=== PATIENT | male | born 1980 | race Caucasian/White ===

== ENCOUNTER 2017-06-22 18:39 | Inpatient (IN) | payer MEDICAID ==
[2017-06-22 19:35] LABS: % LYMPHOCYTES 22.3 % (20.0-50.0); % MONOCYTES 2.7 % (2.0-10.0); EOSINOPHILE ABSOLUTE 0.5 Th/cmm (0.1-0.4); HEMATOCRIT 44.6 % (41.0-60); HEMOGLOBIN 15.3 gm/dL (12-16); LYMPHOCYTE ABSOLUTE 2.5 Th/cmm (1.5-3.0); MEAN CELL VOLUME 95.5 fl (80-99); MEAN CORPUSCULAR HEMOGLOBIN 32.7 pg (26.0-30.0); MEAN CORPUSCULAR HGB CONC 34.2 pg (28.0-36.0); MEAN PLATELET VOLUME 8.6 fl; MONOCYTE ABSOLUTE 0.3 Th/cmm (0.3-1.0); PLATELET COUNT 201 Th/cmm (150-400); RED BLOOD COUNT 4.67 Mil/cmm (4.30-5.70); RED CELL DISTRIBUTION WIDTH 12.5 % (11.5-20.0); WHITE BLOOD COUNT 11.3 Th/cmm (4.8-10.8)
[2017-06-22 19:54] LABS: ALB/GLOB RATIO 1.5 (1.0-1.8); ALBUMIN 4.3 gm/dL (4.2-5.5); ALKALINE PHOSPHATASE 71 U/L (34-104); ANION GAP 12.7 (7.0-16.0); BILIRUBIN,TOTAL 0.1 mg/dL (0.3-1.0); BUN - UREA NITROGEN 17 mg/dL (7-25); CALCIUM SERUM 9.2 mg/dL (8.6-10.3); CARBON DIOXIDE 22.8 mEq/L (21.0-31.0); CHLORIDE 105 mEq/L (98-107); GFR AFRICAN-AMERICAN > 60.0 ml/min (>90); GFR NON AFRICAN-AMERICAN > 60.0 ml/min; GLUCOSE 205 mg/dL (70-105); POTASSIUM SERUM 3.5 mEq/L (3.5-5.1); SGOT 30 U/L (13-39); SGPT/ALT 38 U/L (7-52); SODIUM SERUM 137 mEq/L (136-145); TOTAL PROTEIN,SERUM 7.2 gm/dL (6.0-8.3)
--- NOTE | 2017-06-22 19:55 | ED Physician Chart ---
ED Chief Complaint/HPI - Patient Information Date Seen:: 06/22/17 Time Seen:: 19:55 Chief Complaint:: Seizures History of Present Illness:: 37 yo male was brought by ambulance from a hotel to ER for evaluation of seizures. Per patient's girlfriend, patient had history of seizures treated with dilantin and carbamazepine. The patient still had frequent episodes of small seizures. Furthermore, patient did not take anti-seizure medications during past 4 days. He had used methamphetamine at some point. Today, he lost consciousness and developed seizures at a hotel. Subsequently, 911 was called and he was brought to ER. After the patient wake up, he could not recall the seizures and felt generalized weakness. He reported last use of alcohol a month ago. At ER, the patient had one episode of grand mal seizure. Allergies:: Allergies Allergy/AdvReac Type Severity Reaction Status Date / Time No Known Allergies Allergy Verified 06/22/17 18:55 Vitals:: Vital Signs - 8 hr 06/22/17 18:55 Temp 99.4 F HR 109 RR 16 BP 134/82 O2 Sat % 94 ED Review of Systems - Review of Systems General/Constitutional: No fever Skin: No skin lesions Head: No headache Eyes: No loss of vision ENT: No earache Neck: No neck pain Cardio Vascular: No chest pain Pulmonary: No SOB GI: No nausea, No vomiting Musculoskeletal: No bone or joint pain ED Past Medical History - Past Medical History Past Medical History: DM (pre-diabetes), Seizures Social History: Smoker, Alcohol, Illicit Drug Use (methamphetamine) Surgical History: None Family Medical History - Family Member Mother History Unknown: Yes ED Physical Exam - Physical Examination General/Constitutional: Awake, Alert Head: Atraumatic Eyes: PERRL Skin: No ecchymosis ENMT: Nasal exam nl Neck: No nuchal rigidity Respiratory: No Wheeze/Rhonchi/Rales Cardio Vascular: RRR, No murmur, gallop, rubs, NL S1 S2 GI: No tenderness/rebounding/guarding Extremities: normal strength in all extremities Other Neuro/Psych comments:: mild tremor of b/l hand when extended. ED Labs/Radiology/EKG Results - Lab Results Results: Laboratory Tests 06/22/17 19:25 WBC 11.3 H RBC 4.67 Hgb 15.3 Hct 44.6 MCV 95.5 MCH 32.7 H MCHC Differential 34.2 RDW 12.5 Plt Count 201 MPV 8.6 Neutrophils % 71.0 Lymphocytes % 22.3 Monocytes % 2.7 Eosinophils % 4.0 Basophils % 0.0 - Radiology Results Results: CT head without contrast: No intracranial hemorrhage, mass effect or edema ED Assessment - Assessment General Assessment: Breakthrough seizures Leukocytosis Methamphetamine abuse Assessment/Comments:: CBC, CMP, UA, urine drug screen Ativan 2mg IM x [address] head without contrast At 23:00, patient took home medication Dilantin 400mg and Tegratol 200mg brought by girlfriend Spoke with Dr. Palm who instructed to give Dilantin 1000mg IV before the patient transferred to med surg floor. ED Septic Shock - . Is Septic Shock (SBP<90, OR Lactate>4 mmol\L) present?: No - <6hrs of presentation: Vital Signs: Vital Signs - 8 hr 06/22/17 18:55 Temp 99.4 F HR 109 RR 16 BP 134/82 O2 Sat % 94 ED Reassessment (Disposition) - Reassessment Reassessment Condition:: Improved - Patient Disposition Discharge/Transfer:: Acute Care w/in this hosp Admitted to:: [facility] Admitting Medical Physician:: Jeremiah Estrada
[2017-06-22 20:23] LABS: URINE MICROSCOPIC INDICATED? YES; URINE SOURCE RANDOM
[2017-06-22 20:26] LABS: URINE BILIRUBIN NEGATIVE (NEGATIVE); URINE BLOOD TRACE (NEGATIVE); URINE GLUCOSE (UA) NEGATIVE (NEGATIVE); URINE KETONE NEGATIVE (NEGATIVE); URINE LEUKOCYTE ESTERASE NEGATIVE (NEGATIVE); URINE NITRATE NEGATIVE (NEGATIVE); URINE PH 5.5 (4.6 - 8.0); URINE PROTEIN 100 mg/dL (NEGATIVE); URINE UROBILINOGEN 0.2 E.U./dL (0.2 - 1.0)
[2017-06-22 20:32] LABS: URINE BACTERIA NONE SEEN /hpf (NONE SEEN); URINE CLARITY CLEAR (CLEAR); URINE COLOR YELLOW; URINE EPITHELIAL CELLS NONE SEEN /lpf (FEW); URINE WBC NONE SEEN /hpf (0-5)
[2017-06-22 20:51] LABS: AMPHETAMINE URINE POSITIVE (NEGATIVE); BARBITURATES URINE NEGATIVE (NEGATIVE); BENZODIAZEPINES QUAL URINE NEGATIVE (NEGATIVE); CANNABINOID THC NEGATIVE (NEGATIVE); COCAINE METABOLITE QUAL URINE NEGATIVE (NEGATIVE); METHADONE URINE NEGATIVE (NEGATIVE); METHAMPHETAMINES QUAL URINE POSITIVE (NEGATIVE); OPIATES (MORPHINE) QUAL. URINE NEGATIVE (NEGATIVE); PHENCYCLIDINE (PCP) URINE NEGATIVE (NEGATIVE); TRICYCLICS (TCA) QUAL. URINE NEGATIVE (NEGATIVE)
[2017-06-22] MEDS ORDERED: Sodium Chloride 0.9% 1,000 ML IV ONE (22:40)
[2017-06-22] MEDS ORDERED: cefTRIAXone 1 GM in Sodium Chloride 0.9% 50 ML IV ONE (22:41)
[2017-06-22 22:56] LABS: PHENYTOIN < 2.5 ug/ml (10.0-20.0)
[2017-06-23] MEDS ORDERED: Phenytoin 1,000 MG in Sodium Chloride 0.9% 100 ML IV ONE (01:04)
[2017-06-23] MEDS ORDERED: Phenytoin 50 mg/mL 5 mL Vial IV ONE (01:24)
[2017-06-23 03:23] VITALS: BP 115/71
--- NOTE | 2017-06-23 08:08 | Diagnostic Imaging Report ---
CT scan of the brain without contrast History: Seizure Total DLP equals 599 CTDI equals 33.9 Axial sections were obtained from the base of the skull to the vertex. There is a normal ventricular system size. No focal parenchymal lesions are seen. No evidence of any mass effect or shift of midline structures. No extra-axial masses or abnormal fluid collections. Impression: Negative examination.
--- NOTE | 2017-06-23 11:47 | History & Physical ---
ADMIT DATE: PATIENT IDENTIFICATION: A 37-year-old male. CHIEF COMPLAINT: "I don't know what happened." HISTORY OF PRESENT ILLNESS: A 37-year-old [place] male with longstanding history of seizure disorder, has been followed by cooperer, Dr. Carlos Abdullahi in [facility], stopped taking his seizure medication approximately 2 weeks ago. According to him, he was living with his girlfriend and his girlfriend kicked him out and he was staying in a hotel. In a hotel, he had tonic-clonic seizure and the patient was rushed into Emergency Room after someone called 911. When the patient arrived in the Emergency Room, the patient was extensively worked up and noted to have a Dilantin and Tegretol level of less than 2.5. The patient's urine drug screen was positive for crystal meth. The patient did have a CT scan, which was unremarkable. I did talk to Emergency Room MD about the patient is to be loaded with Dilantin and the patient can be discharged, but the patient ended up staying in the hospital since the patient was still not responding after got some IV Ativan. This morning, the patient is alert, awake, oriented and provided the excellent history. PAST MEDICAL HISTORY: Remarkable for seizure disorder. MEDICATIONS AT HOME: Dilantin and Tegretol. ALLERGIES: None. 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 The patient is currently homeless. He smokes occasionally cigarettes, drinks alcohol occasionally and use illicit drugs. FAMILY MEDICAL HISTORY: Remarkable for diabetes mellitus. REVIEW OF SYSTEMS: The patient currently denies any headache, blurred vision, double vision, dysphagia, odynophagia, runny nose, stuffy nose, fever, chills, cough, chest pain, shortness of breath, palpitation, dizziness, nausea, vomiting, diarrhea, dysuria, hematuria, hematochezia, or melena. No history of any seizure or syncopal episode. No weight loss or weight gain. PHYSICAL EXAMINATION: GENERAL: The patient is alert, awake, oriented, lying in the bed without any acute distress. VITAL SIGNS: Temperature 98.6, pulse 64, respiratory rate 18, and blood pressure 115/71. HEENT: Normocephalic and atraumatic. Extraocular muscles are intact. Pupil are round and reactive to light. Tongue was pink and coated. No oral lesion, no exudate. No sinus tenderness. NECK: Supple, no JVD, no hepatojugular reflex. No lymphadenopathy, thyromegaly, or carotid bruit. HEART: Both heart sounds are regular. No S3, no S4, no murmur. CHEST: Lung equal in expansion. No wheezing, no crackles. ABDOMEN: Soft. No guarding, no rigidity. Liver and spleen palpable. No palpable mass. EXTREMITIES: No edema, no cyanosis or clubbing. ____ +2. No calf tenderness noted. NEUROLOGIC: Alert, awake, and oriented to time, place, person. 2-12 cranial nerves intact. Power in upper and lower extremities 5+. Sensory to touch intact. Babinski's in both toes are going down. No cerebellar sign. AVAILABLE DIAGNOSTIC DATA: Urine drug screen is positive for amphetamine and methamphetamine screen. Dilantin level was 0.25 and Tegretol too less than 2. After loaded with Dilantin, the patient's Dilantin level is 13.6. Urinalysis remarkable, 100 protein, 2-5 rbc's. Chemistry panels are within normal limit except random blood sugars 205. ____. Liver functions are normal. White count of 11.3, hemoglobin 15.3, and platelet count 201. CT scan of the head was unremarkable. CLINICAL IMPRESSION: 1. Breakthrough seizure secondary to noncompliance of his medications. 2. Methamphetamine use. 3. Homelessness. PLAN: The patient remained hemodynamically as well as neurologically intact. Dilantin level is therapeutic. The patient can be discharged home with currently prescribed Dilantin and Tegretol as the patient was receiving. The patient is currently homeless. Social service consultation has been requested and the patient will be placed on the community safely. The patient has fully understood about the treatment plan. I do not think at this time the patient needs to have any psychotic evaluation or the patient has any suicidal or homicidal ideation. The patient is well aware of his substance abuse history. The patient has been strongly encouraged to see his cooperer and have followup with him, so the patient can be followed for his seizure. JOB# [id number]
[2017-06-24] MEDS ORDERED: Influenza Vaccine 0.5 mL Syr IM ONE (09:00)
--- NOTE | 2017-06-24 09:03 | General Progress Note ---
Subjective - Review of Systems Subjective: Patient is seen and examined. Patient says, I am suciidal. Discharge is on hold. Psych consult is pending. Objective - Results Result Diagrams: 06/22/17 19:25 06/22/17 19:25 Recent Labs: Laboratory Last Values WBC 11.3 Th/cmm (4.8-10.8) H 06/22/17 19:25 RBC 4.67 Mil/cmm (4.30-5.70) 06/22/17 19:25 Hgb 15.3 gm/dL (12-16) 06/22/17 19:25 Hct 44.6 % (41.0-60) 06/22/17 19:25 MCV 95.5 fl (80-99) 06/22/17 19:25 MCH 32.7 pg (26.0-30.0) H 06/22/17 19:25 MCHC Differential 34.2 pg (28.0-36.0) 06/22/17 19:25 RDW 12.5 % (11.5-20.0) 06/22/17 19:25 Plt Count 201 Th/cmm (150-400) 06/22/17 19:25 MPV 8.6 fl 06/22/17 19:25 Neutrophils % 71.0 % (40.0-80.0) 06/22/17 19:25 Lymphocytes % 22.3 % (20.0-50.0) 06/22/17 19:25 Monocytes % 2.7 % (2.0-10.0) 06/22/17 19:25 Eosinophils % 4.0 % (0.0-5.0) 06/22/17 19:25 Basophils % 0.0 % (0.0-2.0) 06/22/17 19:25 Sodium 137 mEq/L (136-145) 06/22/17 19:25 Potassium 3.5 mEq/L (3.5-5.1) 06/22/17 19:25 Chloride 105 mEq/L (98-107) 06/22/17 19:25 Carbon Dioxide 22.8 mEq/L (21.0-31.0) 06/22/17 19:25 Anion Gap 12.7 (7.0-16.0) 06/22/17 19:25 BUN 17 mg/dL (7-25) 06/22/17 19:25 Creatinine 1.0 mg/dL (0.7-1.3) 06/22/17 19:25 Est GFR ( Amer) > 60.0 ml/min (>90) 06/22/17 19:25 Est GFR (Non-Af Amer) > 60.0 ml/min 06/22/17 19:25 BUN/Creatinine Ratio 17.0 06/22/17 19:25 Glucose 205 mg/dL (70-105) H 06/22/17 19:25 Hemoglobin A1c % 6.0 % (4.0-6.0) 06/22/17 19:25 Calcium 9.2 mg/dL (8.6-10.3) 06/22/17 19:25 Total Bilirubin 0.1 mg/dL (0.3-1.0) L 06/22/17 19:25 AST 30 U/L (13-39) 06/22/17 19:25 ALT 38 U/L (7-52) 06/22/17 19:25 Alkaline Phosphatase 71 U/L (34-104) 06/22/17 19:25 Total Protein 7.2 gm/dL (6.0-8.3) 06/22/17 19:25 Albumin 4.3 gm/dL (4.2-5.5) 06/22/17 19:25 Globulin 2.9 gm/dL 06/22/17 19:25 Albumin/Globulin Ratio 1.5 (1.0-1.8) 06/22/17 19:25 Urine Source RANDOM 06/22/17 19:00 Urine Color YELLOW 06/22/17 19:00 Urine Clarity CLEAR (CLEAR) 06/22/17 19:00 Urine pH 5.5 (4.6 - 8.0) 06/22/17 19:00 Ur Specific [place] >= 1.030 (1.005-1.030) 06/22/17 19:00 Urine Protein 100 mg/dL (NEGATIVE) H 06/22/17 19:00 Urine Glucose (UA) NEGATIVE mg/dL (NEGATIVE) 06/22/17 19:00 Urine Ketones NEGATIVE mg/dL (NEGATIVE) 06/22/17 19:00 Urine Blood TRACE (NEGATIVE) 06/22/17 19:00 Urine Nitrate NEGATIVE (NEGATIVE) 06/22/17 19:00 Urine Bilirubin NEGATIVE (NEGATIVE) 06/22/17 19:00 Urine Urobilinogen 0.2 E.U./dL (0.2 - 1.0) 06/22/17 19:00 Ur Leukocyte Esterase NEGATIVE (NEGATIVE) 06/22/17 19:00 Urine RBC 2-5 /hpf (0-5) H 06/22/17 19:00 Urine WBC NONE SEEN /hpf (0-5) 06/22/17 19:00 Ur Epithelial Cells NONE SEEN /lpf (FEW) 06/22/17 19:00 Urine Bacteria NONE SEEN /hpf (NONE SEEN) 06/22/17 19:00 Urine Opiates Screen NEGATIVE (NEGATIVE) 06/22/17 19:00 Urine Methadone Screen NEGATIVE (NEGATIVE) 06/22/17 19:00 Ur Barbiturates Screen NEGATIVE (NEGATIVE) 06/22/17 19:00 Phenytoin 13.6 ug/ml (10.0-20.0) 06/23/17 05:09 Carbamazepine < 2.0 ug/ml (4.0-12.0) L 06/22/17 19:25 Ur Tricyclics Screen NEGATIVE (NEGATIVE) 06/22/17 19:00 Ur Phencyclidine Scrn NEGATIVE (NEGATIVE) 06/22/17 19:00 Amphetamines Screen POSITIVE (NEGATIVE) H 06/22/17 19:00 U Methamphetamines Scrn POSITIVE (NEGATIVE) H 06/22/17 19:00 U Benzodiazepines Scrn NEGATIVE (NEGATIVE) 06/22/17 19:00 U Cocaine Metab Screen NEGATIVE (NEGATIVE) 06/22/17 19:00 U Cannabinoids Screen NEGATIVE (NEGATIVE) 06/22/17 19:00 Ethyl Alcohol < 10 mg/dL (0-10) 06/22/17 19:25 - Physical Exam Vitals and I&O: Vital Signs Temp 97.8 F 06/24/17 07:40 Pulse 77 06/24/17 07:40 Resp 17 06/24/17 07:40 BP 105/70 06/24/17 07:40 Pulse Ox 95 06/24/17 07:40 Intake & Output 06/23/17 06/24/17 06/24/17 18:59 06:59 18:59 Intake Total 1000 Balance 1000 Weight (lbs) 88.451 kg 88.451 kg Intake: Oral 1000 Other: # Voids 4 2 # Bowel Movements 0 Active Medications: Current Medications Carbamazepine (Tegretol) 200 mg PO BID ELLI PRN Reason: Protocol Stop: 08/22/17 08:59 Last Admin: 06/23/17 16:27 Dose: 200 mg Influenza Virus Vaccine (Fluarix) 0.5 ml IM .ONCE ONE Stop: 06/24/17 09:01 Lorazepam (Ativan) 1 mg IVP Q4HR PRN; Protocol PRN Reason: Seizures Stop: 08/22/17 03:33 General: Alert, Oriented x3, No acute distress HEENT: Atraumatic, PERRLA, EOMI, Mucous membr. moist/pink Neck: Supple, +2 carotid pulse wo bruit Cardiovascular: Regular rate, Normal S1, Normal S2 Lungs: Clear to auscultation Abdomen: Bowel sounds, Soft Neurological: Normal gait, Strength at 5/5 X4 ext, Normal tone, Cranial nerves 3 -12 NL, Reflexes 2+ Psych/Mental Status: Mental status NL Assessment/Plan - Assessment Assessment: Seizure Psych disorder and sucidal ideation. - Plan Plan: Seizure meds and precautions. Psych consult is pending. Stable for DC to psych facility. Discussed with staff. Nutritional Asmnt/Malnutr-PDOC - Dietary Evaluation Malnutrition Findings (Please click <Entered> for more info): Nutritional Asmnt/Malnutrition Start: 06/23/17 18: 28 Text: Status: Complete Freq: Document 06/23/17 18:28 LCHEN (Rec: 06/23/17 18:34 HENG [email or web address]) Nutritional Asmnt/Malnutrition Patient General Information Nutritional Screening High Risk Consult Diagnosis break through seizures Pertinent Medical Hx/Surgical Hx DM, seizure Subjective Information Consult received for high BS. Pt seen lying in bed at time of visit, awake alert. Pt reported good appetite, ate well today. Per records, PO intake 100% x 3 today Current Diet Order/ Nutrition Support regular Pertinent Medications reviewed Pertinent Labs 2/6 glucose 205, A1c 6.0 Nutritional Hx/Data Height 1.63 m Height (Calculated Centimeters) 162.6 Current Weight (lbs) 89.811 kg Weight (Calculated Kilograms) 89.8 Weight (Calculated Grams) 03898.3 [place] Body Weight 130 % [place] Body Weight 152 Body Mass Index (BMI) 34.0 Weight Status Obese GI Symptoms GI Symptoms None Last BM 0 Difficult in: None Usual diet at home pt stated he was told to follow diabetic diet but he did not. Skin Integrity/Comment: intact Current %PO Good (75-100%) Estimated Nutritional Goals BEE in Kcals: Adj wt of IBW Calories/Kcals/Kg 25-30 Kcals Calculated 0600-0572 Protein: Adj wt of IBW Protein g/k-1.2 Protein Calculated 66-79 Fluid: ml 1650-1980ml (1ml/kcal) Nutritional Problem 1. Problem Problem altered nutrition related lab values Etiology hx of DM, excessive carborhydrate intake Signs/Symptoms: glucose 205 Malnutrition Alert Protein-Calorie Malnutrition N/A Is there a minimum of two criteria No selected? Query Text:Check all the applicable criteria. A minimum of two criteria are recommended for diagnosis of either severe or non-severe malnutrition. Intervention/Recommendation Comments 1. Recommend CCHO-60gm diet for optimal glycemic control. RN made aware. 2. Diabetes education provided . Pt showed interest. handout left on table while pt sleeping at the time. 3. Monitor PO intake, wt, labs and skin integrity 4. F/U as moderate risk in 3-5 days, 06/26-06/28 Expected Outcomes/Goals Expected Outcomes/Goals 1. PO intake to meet at least 75% of nutritional needs. 2. Wt stability, skin to remain intact, labs to approach WNL.
--- NOTE | 2017-06-24 09:22 | Consultation ---
DATE OF CONSULTATION: 06/24/2017 AGE: 37 SEX: Male. PHYSICIAN: Dr. Estrada. BURIAL AGENT: Dr. Guardado. TYPE OF THE REPORT: Psychiatric consult. REASON FOR THE CONSULT: Depression and meth use. HISTORY OF PRESENT ILLNESS: The patient is a 37-year-old male who was admitted to the hospital because the patient has history of seizure disorder and he is still taking his seizure medications for 2 weeks for no apparent reason. The patient was living with his girlfriend who kicked him out and since then he has been living in a motel and his medications in his girlfriend's place and he could not go back to take it. The patient said that he has been depressed since his girlfriend kicked him out. The patient also has been feeling hopeless. The patient states he at times feels suicidal with no plans. The patient denies any history of suicidal ideations or attempt and denies any history of psychiatric treatment. The patient has been using meth and last time he used was 3 days prior to his admission. He denies any other street drug use and he denies drinking. PAST PSYCHIATRIC HISTORY: The patient denies except that the patient went to rehab programs, but he continued to use afterwards. PAST MEDICAL HISTORY: Seizure disorder. SOCIAL HISTORY: The patient lives in a motel. 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 He denies any abuse issues. The patient is single, never and has no children. ALLERGIES: No known allergies. MENTAL STATUS EXAM: The patient appears his stated age. Calm. Cooperative. Depressed mood. Fair eye contact. Normal tone and rate of speech. Thought processes mainly goal directed. The patient denies auditory or visual hallucinations or delusions. The patient admits suicidal ideations and is every now and then but he denies any homicidal ideations. The patient is alert and oriented to time, place, person, and situation. Intact immediate, recent and remote memories. Fair insight and fair judgment. He seems to be of average intelligence based on his verbal ability. ASSESSMENT: PRIMARY DIAGNOSES: Major depression, moderate to severe, single episode, without psychotic features. SECONDARY DIAGNOSIS: Methamphetamine use disorder. TREATMENT PLAN: We will monitor the patient's behavior and reevaluate the patient. Currently, the patient also is saying that he is having thoughts of suicide. According to my judgment as well as nursing staff, it seems that he needs placement. Also, the patient will need rehabilitation. Also, outpatient treatment after his discharge when medically stable. We will reevaluate the patient. Thanks to Dr. Estrada and we will follow up with you. JOB# [id number]
--- NOTE | 2017-06-25 09:21 | General Progress Note ---
Subjective - Review of Systems Subjective: Patient is seen and examined. Psych input noted. Discussed with RN re; dc plan. Objective - Results Result Diagrams: 06/22/17 19:25 06/22/17 19:25 Recent Labs: Laboratory Last Values WBC 11.3 Th/cmm (4.8-10.8) H 06/22/17 19:25 RBC 4.67 Mil/cmm (4.30-5.70) 06/22/17 19:25 Hgb 15.3 gm/dL (12-16) 06/22/17 19:25 Hct 44.6 % (41.0-60) 06/22/17 19:25 MCV 95.5 fl (80-99) 06/22/17 19:25 MCH 32.7 pg (26.0-30.0) H 06/22/17 19:25 MCHC Differential 34.2 pg (28.0-36.0) 06/22/17 19:25 RDW 12.5 % (11.5-20.0) 06/22/17 19:25 Plt Count 201 Th/cmm (150-400) 06/22/17 19:25 MPV 8.6 fl 06/22/17 19:25 Neutrophils % 71.0 % (40.0-80.0) 06/22/17 19:25 Lymphocytes % 22.3 % (20.0-50.0) 06/22/17 19:25 Monocytes % 2.7 % (2.0-10.0) 06/22/17 19:25 Eosinophils % 4.0 % (0.0-5.0) 06/22/17 19:25 Basophils % 0.0 % (0.0-2.0) 06/22/17 19:25 Sodium 137 mEq/L (136-145) 06/22/17 19:25 Potassium 3.5 mEq/L (3.5-5.1) 06/22/17 19:25 Chloride 105 mEq/L (98-107) 06/22/17 19:25 Carbon Dioxide 22.8 mEq/L (21.0-31.0) 06/22/17 19:25 Anion Gap 12.7 (7.0-16.0) 06/22/17 19:25 BUN 17 mg/dL (7-25) 06/22/17 19:25 Creatinine 1.0 mg/dL (0.7-1.3) 06/22/17 19:25 Est GFR ( Amer) > 60.0 ml/min (>90) 06/22/17 19:25 Est GFR (Non-Af Amer) > 60.0 ml/min 06/22/17 19:25 BUN/Creatinine Ratio 17.0 06/22/17 19:25 Glucose 205 mg/dL (70-105) H 06/22/17 19:25 Hemoglobin A1c % 6.0 % (4.0-6.0) 06/22/17 19:25 Calcium 9.2 mg/dL (8.6-10.3) 06/22/17 19:25 Total Bilirubin 0.1 mg/dL (0.3-1.0) L 06/22/17 19:25 AST 30 U/L (13-39) 06/22/17 19:25 ALT 38 U/L (7-52) 06/22/17 19:25 Alkaline Phosphatase 71 U/L (34-104) 06/22/17 19:25 Total Protein 7.2 gm/dL (6.0-8.3) 06/22/17 19:25 Albumin 4.3 gm/dL (4.2-5.5) 06/22/17 19:25 Globulin 2.9 gm/dL 06/22/17 19:25 Albumin/Globulin Ratio 1.5 (1.0-1.8) 06/22/17 19:25 Urine Source RANDOM 06/22/17 19:00 Urine Color YELLOW 06/22/17 19:00 Urine Clarity CLEAR (CLEAR) 06/22/17 19:00 Urine pH 5.5 (4.6 - 8.0) 06/22/17 19:00 Ur Specific [place] >= 1.030 (1.005-1.030) 06/22/17 19:00 Urine Protein 100 mg/dL (NEGATIVE) H 06/22/17 19:00 Urine Glucose (UA) NEGATIVE mg/dL (NEGATIVE) 06/22/17 19:00 Urine Ketones NEGATIVE mg/dL (NEGATIVE) 06/22/17 19:00 Urine Blood TRACE (NEGATIVE) 06/22/17 19:00 Urine Nitrate NEGATIVE (NEGATIVE) 06/22/17 19:00 Urine Bilirubin NEGATIVE (NEGATIVE) 06/22/17 19:00 Urine Urobilinogen 0.2 E.U./dL (0.2 - 1.0) 06/22/17 19:00 Ur Leukocyte Esterase NEGATIVE (NEGATIVE) 06/22/17 19:00 Urine RBC 2-5 /hpf (0-5) H 06/22/17 19:00 Urine WBC NONE SEEN /hpf (0-5) 06/22/17 19:00 Ur Epithelial Cells NONE SEEN /lpf (FEW) 06/22/17 19:00 Urine Bacteria NONE SEEN /hpf (NONE SEEN) 06/22/17 19:00 Urine Opiates Screen NEGATIVE (NEGATIVE) 06/22/17 19:00 Urine Methadone Screen NEGATIVE (NEGATIVE) 06/22/17 19:00 Ur Barbiturates Screen NEGATIVE (NEGATIVE) 06/22/17 19:00 Phenytoin 13.6 ug/ml (10.0-20.0) 06/23/17 05:09 Carbamazepine < 2.0 ug/ml (4.0-12.0) L 06/22/17 19:25 Ur Tricyclics Screen NEGATIVE (NEGATIVE) 06/22/17 19:00 Ur Phencyclidine Scrn NEGATIVE (NEGATIVE) 06/22/17 19:00 Amphetamines Screen POSITIVE (NEGATIVE) H 06/22/17 19:00 U Methamphetamines Scrn POSITIVE (NEGATIVE) H 06/22/17 19:00 U Benzodiazepines Scrn NEGATIVE (NEGATIVE) 06/22/17 19:00 U Cocaine Metab Screen NEGATIVE (NEGATIVE) 06/22/17 19:00 U Cannabinoids Screen NEGATIVE (NEGATIVE) 06/22/17 19:00 Ethyl Alcohol < 10 mg/dL (0-10) 06/22/17 19:25 - Physical Exam Vitals and I&O: Vital Signs Temp 97.9 F 06/25/17 07:41 Pulse 72 06/25/17 07:41 Resp 18 06/25/17 07:41 BP 116/72 06/25/17 07:41 Pulse Ox 99 06/25/17 07:41 Intake & Output 06/24/17 06/25/17 06/25/17 18:59 06:59 18:59 Intake Total 500 Balance 500 Weight (lbs) 88.451 kg 88.451 kg Intake: Oral 500 Other: # Voids 2 # Bowel Movements 0 Stool Characteristics Soft Active Medications: Current Medications Carbamazepine (Tegretol) 200 mg PO BID ELLI PRN Reason: Protocol Stop: 08/22/17 08:59 Last Admin: 06/25/17 09:03 Dose: 200 mg Lorazepam (Ativan) 1 mg IVP Q4HR PRN; Protocol PRN Reason: Seizures Stop: 08/22/17 03:33 Phenytoin (Dilantin) 200 mg PO BID ELLI Stop: 08/23/17 16:59 Last Admin: 06/25/17 09:03 Dose: 200 mg General: Alert, Oriented x3, No acute distress HEENT: Atraumatic, PERRLA, EOMI, Mucous membr. moist/pink Neck: Supple, +2 carotid pulse wo bruit Cardiovascular: Regular rate, Normal S1, Normal S2 Lungs: Clear to auscultation Abdomen: Bowel sounds, Soft Neurological: Normal gait, Strength at 5/5 X4 ext, Normal tone, Cranial nerves 3 -12 NL, Reflexes 2+ Psych/Mental Status: Mental status NL Assessment/Plan - Assessment Assessment: Seizure Psych disorder evaluated by psych as per psych needs placement and out patient rehab - Plan Plan: Patient is stable for discharge. Discussed with communications planner RE: dc to residential. Prescription is written. Out patient follow up with PCP and Psych discussed with patient. Nutritional Asmnt/Malnutr-PDOC - Dietary Evaluation Malnutrition Findings (Please click <Entered> for more info): Nutritional Asmnt/Malnutrition Start: 06/23/17 18: 28 Text: Status: Complete Freq: Document 06/23/17 18:28 LCYARELIS (Rec: 06/23/17 18:34 [email or web address]) Nutritional Asmnt/Malnutrition Patient General Information Nutritional Screening High Risk Consult Diagnosis break through seizures Pertinent Medical Hx/Surgical Hx DM, seizure Subjective Information Consult received for high BS. Pt seen lying in bed at time of visit, awake alert. Pt reported good appetite, ate well today. Per records, PO intake 100% x 3 today Current Diet Order/ Nutrition Support regular Pertinent Medications reviewed Pertinent Labs 2/6 glucose 205, A1c 6.0 Nutritional Hx/Data Height 1.63 m Height (Calculated Centimeters) 162.6 Current Weight (lbs) 89.811 kg Weight (Calculated Kilograms) 89.8 Weight (Calculated Grams) 05890.3 [place] Body Weight 130 % [place] Body Weight 152 Body Mass Index (BMI) 34.0 Weight Status Obese GI Symptoms GI Symptoms None Last BM 0 Difficult in: None Usual diet at home pt stated he was told to follow diabetic diet but he did not. Skin Integrity/Comment: intact Current %PO Good (75-100%) Estimated Nutritional Goals BEE in Kcals: Adj wt of IBW Calories/Kcals/Kg 25-30 Kcals Calculated 2471-9138 Protein: Adj wt of IBW Protein g/k-1.2 Protein Calculated 66-79 Fluid: ml 1650-1980ml (1ml/kcal) Nutritional Problem 1. Problem Problem altered nutrition related lab values Etiology hx of DM, excessive carborhydrate intake Signs/Symptoms: glucose 205 Malnutrition Alert Protein-Calorie Malnutrition N/A Is there a minimum of two criteria No selected? Query Text:Check all the applicable criteria. A minimum of two criteria are recommended for diagnosis of either severe or non-severe malnutrition. Intervention/Recommendation Comments 1. Recommend CCHO-60gm diet for optimal glycemic control. RN made aware. 2. Diabetes education provided . Pt showed interest. handout left on table while pt sleeping at the time. 3. Monitor PO intake, wt, labs and skin integrity 4. F/U as moderate risk in 3-5 days, 06/26-06/28 Expected Outcomes/Goals Expected Outcomes/Goals 1. PO intake to meet at least 75% of nutritional needs. 2. Wt stability, skin to remain intact, labs to approach WNL.
--- NOTE | 2017-06-25 21:32 | Progress Notes ---
DATE: 06/25/2017 PSYCHIATRIC PROGRESS NOTE SUBJECTIVE: Chart reviewed and the patient interviewed. Also discussed the patient's condition with the staff and reviewed records and labs. The patient's affect is brighter. The patient is still complaining of feeling depressed, but denies any intention to harm himself or others. The patient also did talk to his girlfriend and she is going to give him his belongings that she has in her place. Also, they have peaceful relationship at this time. The patient also denies any craving to use any methamphetamines. At the same time, we will continue to follow his behavior closely and will continue to follow up. The patient also agreed to go to a halfway with plan to go to see AA meetings and also to mental health clinic for followup. At this time, the patient is not suicidal or homicidal and can be discharged from the hospital when medically cleared by Dr. Estrada with plan for treatment as an outpatient. JOB# [id number]
--- NOTE | 2017-07-09 09:55 | Discharge Summary ---
DATE OF DISCHARGE: 06/25/2017 PRINCIPAL DIAGNOSES: 1. Seizure disorder. 2. Psychotic disorder. 3. Polysubstance abuse. BRIEF STATEMENT FOR THE REASON FOR ADMISSION: A 37-year-old male presented to Emergency Room after the patient was noted to have tonic-clonic seizure activity in a hotel room and 911 was called in. When the patient arrived in the Emergency Room, the patient was noted to have a subtherapeutic seizure medication level along with urine drug screen was positive for crystal meth. HOSPITAL COURSE: The patient was admitted after discussion with the Emergency Room MD for further management. The patient was seen by me. The patient had a high loading dose of Dilantin, Tegretol dose was increased as well. The patient was advised to be discharged home considering patient had a breakthrough seizure and the patient was noncompliant with his medication. Unfortunately, it was noted that the patient was homeless and the patient had a substantial psychiatric history. Psych consult were obtained. The patient was seen by Dr. Guardado. It was assessed that the patient was not a suicidal. The patient was advised to be discharged home with outpatient followup with Mental Health Clinic. The patient was given prescription of Dilantin and Tegretol. The patient will be followed by her stores [facility] in 1 week. [facility]# [id number]
== END 2017-06-25 14:38 | disposition home or self-care (01) | DRG 53 ==
LOC: ER 18:39 → MSI 06-23 00:50 → TELE 06-23 04:48 → MSI 06-24 10:34
PROVIDERS: ADMIT Internal Medicine; ATTEND Internal Medicine
DX: G40.909 Epilepsy, unspecified, not intractable, without status epilepticus (principal); R45.851 Suicidal ideations; F32.2 Major depressive disorder, single episode, severe without psychotic features; D72.829 Elevated white blood cell count, unspecified; F15.10 Other stimulant abuse, uncomplicated; E11.9 Type 2 diabetes mellitus without complications; F17.210 Nicotine dependence, cigarettes, uncomplicated; Z83.3 Family history of diabetes mellitus; Z59.0 Homelessness; Z91.14 Patient's other noncompliance with medication regimen
CPT/HCPCS: 36415-UA; 70450-TC; 80053-TC; 80156-TC; 80185-TC; 80307; 80320-TC; 81001-TC; 83036-90; 85025-TC; J0696; J1165; J2060; J7030; Z7610